=== PATIENT | male | born 1945 | race African-American/Black ===

== ENCOUNTER 2016-12-22 09:30 | Observation (INO) | payer MEDICARE ==
[2016-12-22 09:58] LABS: #Eosinphils 0.2 thou/uL (0.0-0.7); #Lymphocytes 2.3 thou/uL (1.20-3.40); #Monocytes 0.6 thou/uL (0.11-0.59); #Neutrophils 1.7 thou/uL (1.40-6.50); %Basophils 0.6 % (0.0-1.0); %Eosinophils 4.3 % (0.0-10.0); %Lymphocytes 47.6 % (21.0-51.0); %Monocytes 11.8 % (0.0-10.0); Hematocrit 47.4 % (42.0-52.0); Mean Platelet Volume 8.1 fL (7.4-10.4); Red Blood Cell (RBC) Count 5.27 mill/uL (4.70-6.10); White Blood Cell (WBC) Count 4.8 thou/uL (4.8-10.8)
[2016-12-22 10:17] LABS: ALT (SGPT) 19 U/L (8-55); AST (SGOT) 26 U/L (5-34); Alkaline Phosphatase 130 U/L (40-150); Anion Gap 17 mmol/L (10-20); BUN (Urea Nitrogen) 24 mg/dL (8.4-25.7); Bilirubin, Total 0.7 mg/dL (0.2-1.2); CK (CPK) 157 U/L (30-200); Calc. Creatinine Clearance 0 mL/min (70-130); Carbon Dioxide 24 mmol/L (23-31); Chloride 104 mmol/L (98-107); Estimated GFR-MDRD 61; Globulin 4.3 g/dL (2.4-3.5); Lipase 23 U/L (8-78); Protein, Total 8.4 g/dL (5.8-8.1)
[2016-12-22 10:20] LABS: Troponin I Less than 0.010 ng/mL (< 0.028)
--- NOTE | 2016-12-22 10:44 | RAD ---
PORTABLE CHEST 1 VIEW: DATE: 12/22/16. TIME: 10:18 a.m. HISTORY: Chest pain. FINDINGS: Comparison is made with the exam of 02/20/15. The heart size is normal. The lungs are expanded without focal areas of consolidation, pneumothorac es, or pleural effusions. Metallic densities in the upper lateral chest are again seen. IMPRESSION: No radiographic evidence of acute cardiopulmonary process. POS: OFF
[2016-12-22] MEDS ORDERED: Diabetic Tussin 200 MG/10 ML UDCUP PO PRN (11:23)
[2016-12-22] MEDS ORDERED: Mag-Al 1200 mg/1200 mg/30 ML UDCUP PO PRN (11:23)
[2016-12-22] MEDS ORDERED: Acetaminophen 325 MG TAB PO PRN (11:23)
[2016-12-22] MEDS ORDERED: traMADol HCl 50 MG TAB PO PRN (11:23)
[2016-12-22] MEDS ORDERED: Bisacodyl 5 MG TAB PO PRN (11:23)
[2016-12-22] MEDS ORDERED: Ondansetron HCl/PF 4 MG/2 ML Vial IVP PRN (11:23)
[2016-12-22] MEDS ORDERED: Lorazepam 1 MG TAB PO PRN (11:23)
[2016-12-22] MEDS ORDERED: Calcium Carbonate 500 MG ChewTAB PO PRN (11:23)
[2016-12-22] MEDS ORDERED: Nitroglycerin 0.4 MG TAB (25 Tab Bottle) SL PRN (11:23)
[2016-12-22] MEDS ORDERED: Senokot 8.6 MG TAB PO PRN (11:23)
[2016-12-22] MEDS ORDERED: cloNIDine 0.1 MG TAB PO PRN (11:23)
[2016-12-22] MEDS ORDERED: hydrALAZINE 20 MG/ML VIAL SLOW IVP PRN (11:23)
[2016-12-22] MEDS ORDERED: Loratadine 10 MG TAB PO PRN (11:23)
[2016-12-22] MEDS ORDERED: HYDROcodone/Acetaminophen 5/325 mg Tablet PO PRN (11:23)
[2016-12-22] MEDS ORDERED: Benzonatate 100 MG CAP PO PRN (11:23)
[2016-12-22 12:24] VITALS: BMI 29.4
[2016-12-22] MEDS ORDERED: FLU VACC TS2017-18 (>65YR) 0.5 ML SYRINGE IM ONE (13:15)
--- NOTE | 2016-12-22 13:50 | HP ---
DATE OF ADMISSION: 12/22/2016 PRIMARY CARE PHYSICIAN: Dr. Maty Liu at [facility]. CHIEF COMPLAINT: Chest pain and testicular pain. HISTORY OF PRESENT ILLNESS: Mr. Gregory is a pleasant 71-year-old Afro- [place] male with past medical history of hypertension and dyslipidemia, who presented to the emergency room with above-mentioned complaint. History is mainly obtained by the patient himself and electronic medical records have been reviewed. The case has been discussed with the emergency physician, Dr. Avelar. Mr. Gregory reports that he has been having intermittent chest pain for the last 2-3 weeks. This is associated with testicular pain and pain in the back of his thighs. He says that all of this pain is just one pain, and every time he has testicular pain, feeling of chest pain comes on. He cannot really describe it other than a heavy sensation, but it seems like he is more bothered about the testicular pain rather than the chest pain. He denies any scrotal swelling or recent trauma. His symptoms are largely exacerbated by intercourse. Currently, his pain is tolerable and is getting better without any intervention. With regard to his cardiac symptoms, he reports that lately he has noticed that he gets easily winded and tired. He has to stop to catch his breath while hunting with his friends on a nightly basis. He has been having some congestion and phlegm for the last few days. He smokes occasionally once every few days. He denies any recent falls, trauma, accident, or recent travels. He denies any orthopnea or PND. He denies any fever, chills, or other recent illnesses. Upon presentation to the emergency room, he was hemodynamically stable with a blood pressure of 131/104 with a pulse of 81, saturation is 93% on room air. His initial workup included a normal 12-lead EKG and normal cardiac enzymes. Given his history of hypertension, dyslipidemia, advanced age as well as his smoking history, his cardiac score is greater than 3 and he is being admitted for further evaluation and rule out acute coronary syndrome. The patient reports that he has stopped taking his cholesterol medications. In the emergency room, he has received 324 mg of oral aspirin and a chest x-ray was also done, which is unremarkable. PAST MEDICAL HISTORY: 1. Hypertension. 2. Dyslipidemia. 3. Tobacco dependence. PAST SURGICAL HISTORY: Unknown abdominal surgery. FAMILY HOSTORY: No CAD.stroke SOCIAL HISTORY: He smokes few cigarettes every few days and occasionally drinks alcohol. He lives at home with his family. No history of drug abuse. ALLERGIES: No known medication allergies. CURRENT MEDICATIONS: Unknown. The patient could not tell me what he takes at home for his high blood pressure. REVIEW OF SYSTEMS: The following complete review of systems was negative, unless otherwise mentioned in the HPI or below: Constitutional: Weight loss or gain, ability to conduct usual activities. Skin: Rash, itching. Eyes: Double vision, pain. ENT/Mouth: Nose bleeding, neck stiffness, pain, tenderness. Cardiovascular: Palpitations, dyspnea on exertion, orthopnea. Respiratory: Shortness of breath, wheezing, cough, hemoptysis, fever or night sweats. Gastrointestinal: Poor appetite, abdominal pain, heartburn, nausea, vomiting, constipation, or diarrhea. Genitourinary: Urgency, frequency, dysuria, nocturia. Musculoskeletal: Pain, swelling. Neurologic/Psychiatric: Anxiety, depression. Allergy/Immunologic: Skin rash, bleeding tendency. It is negative except for those mentioned in the history and physical. Chest x-ray, by my review, has no evidence to suggest pulmonary edema, effusion , or infiltrate. A 12-lead EKG shows normal sinus rhythm without any acute ST or T-wave changes. Heart rate 84 beats per minute. PHYSICAL EXAMINATION: VITAL SIGNS: Most recent include temperature 97.3, pulse of 64, respirations 16 , saturating 96% on room air, blood pressure 166/96. GENERAL EXAMINATION: In no acute distress, awake, alert, oriented x3. HEENT EXAMINATION: Mucous membrane is moist and pink. No oropharyngeal exudate or erythema. Head is normocephalic, atraumatic. Pupils are equal and reactive to light and accommodation. Extraocular movements intact. NECK: Supple without any lymphadenopathy, JVD, or bruit. CHEST: Clear to auscultation without any wheezing, rales, or rhonchi. Rate and rhythm is regular without any murmur, rubs, or gallops. ABDOMEN: Soft, nontender, nondistended with positive bowel sounds. No guarding , rebound, or rigidity. GENITOURINARY EXAM: External genitalia appear normal. There is no testicular swelling, erythema, or tenderness. Cremasteric reflex normal. EXTREMITIES: Free of any cyanosis, clubbing, or edema. NEUROLOGICAL EXAMINATION: Nonfocal. SKIN: Free of any rashes or bruises, feels warm and dry to touch. PSYCHIATRIC: Normal affect. LABORATORY DATA: His CBC is unremarkable. His serum chemistry shows creatinine of 1.40. Troponin less than 0.010 with CK-MB of 3.1. Creatinine kinase 157, lipase of 23. IMPRESSION AND PLAN: 1. Chest pain. The patient is being admitted to our telemetry unit under observation status to rule out acute coronary syndrome. He is rather hypertensive at this time. We will restart his home medications once confirmed , and until then, we will use p.r.n. antihypertensives. He has multiple risk factors for cardiac disease. We will check a lipid panel and also obtain a nuclear medicine cardiac stress test for further evaluation. His first set of cardiac enzymes are normal and we will continue to trend serial cardiac enzymes. 2. Hypertension. The patient will be restarted on his home medications as soon as it is confirmed. He will benefit from addition of beta-saida or BALDOMERO inhibitor with diuretics for his hypertension. At this time, we will avoid beta saida, as he is supposed to be undergoing stress test soon. Restart home medications and add p.r.n. antihypertensives. 3. Dyslipidemia. We will restart the patient on atorvastatin low dose at this time. Recheck his lipid panel. 4. Testicular pain. The patient is currently having spontaneous improvement in his symptoms. I will refer him to outpatient Urology for further recommendations. Nothing acute on examination for today. DISPOSITION: The patient is being admitted to telemetry unit under observation status for ACS workup. Further management will depend upon his clinical course. DONNA
[2016-12-22 13:58] LABS: Troponin I Less than 0.010 ng/mL (< 0.028)
[2016-12-22 16:58] LABS: Troponin I Less than 0.010 ng/mL (< 0.028)
[2016-12-22] MEDS: Carvedilol 3.125 MG TAB PO SCH (20:01)
[2016-12-22] MEDS ORDERED: Atorvastatin Calcium 20 MG TAB PO SCH (21:00)
[2016-12-22] MEDS ORDERED: Lisinopril 20 MG TAB PO SCH (21:00)
[2016-12-23 06:05] LABS: #Eosinphils 0.2 thou/uL (0.0-0.7); #Lymphocytes 1.9 thou/uL (1.20-3.40); #Monocytes 0.7 thou/uL (0.11-0.59); #Neutrophils 2.8 thou/uL (1.40-6.50); %Basophils 0.2 % (0.0-1.0); %Eosinophils 3.8 % (0.0-10.0); %Lymphocytes 33.8 % (21.0-51.0); %Monocytes 11.9 % (0.0-10.0); Mean Platelet Volume 8.2 fL (7.4-10.4); Red Blood Cell (RBC) Count 5.08 mill/uL (4.70-6.10); White Blood Cell (WBC) Count 5.6 thou/uL (4.8-10.8)
[2016-12-23 06:18] LABS: Anion Gap 12 mmol/L (10-20); BUN (Urea Nitrogen) 19 mg/dL (8.4-25.7); Calc. Creatinine Clearance 70 mL/min (70-130); Calcium 9.3 mg/dL (7.8-10.44); Carbon Dioxide 29 mmol/L (23-31); Chloride 101 mmol/L (98-107); Estimated GFR-MDRD 67
[2016-12-23 08:05] VITALS: TEMP 98.3
[2016-12-23] MEDS ORDERED: Enoxaparin Sodium 40 MG/0.4 ML SYRINGE SC SCH (09:00)
[2016-12-23] MEDS ORDERED: Lisinopril 20 MG TAB PO SCH (09:00)
[2016-12-23] MEDS ORDERED: Aspirin 325 MG TAB PO SCH (09:00)
[2016-12-23] MEDS ORDERED: Finasteride 5 MG TAB PO SCH (09:00)
[2016-12-23] MEDS ORDERED: Lisinopril 10 MG TAB PO SCH (09:00)
[2016-12-23] MEDS: Carvedilol 3.125 MG TAB PO SCH (10:31)
[2016-12-23 10:59] VITALS: BP 136/96
[2016-12-23] MEDS ORDERED: ADENOSINE 60 MG/20 ML VIAL ONE (12:00)
--- NOTE | 2016-12-23 13:45 | NM ---
NUCLEAR MEDICINE CARDIAC PERFUSION EXAMINATION WITH EJECTION FRACTION: HISTORY: 71-year-old male with chest pain, hypertension, and hyperlipidemia. TECHNIQUE: A two day nuclear medicine cardiac perfusion examination was performed. Rest images were obtained us ing 31.5 mCi of technetium-99m sestamibi. The following day, stress images were obtained using 32 mC i of technetium-99m sestamibi and Adenosine. FINDINGS: Tomographic images show no fixed or reversible perfusion defects. Gated images show normal wall itz on with an ejection fraction of 56%. EDV: 93 ml LHR: 0.3 TID: 1.2 IMPRESSION: No evidence of ischemia. POS: [facility]
[2016-12-23] MEDS ORDERED: Ipratropium Bromide 0.06% Nasal Inhaler 15ml NASAL SCH (15:00)
--- NOTE | 2016-12-23 15:35 | DIS ---
DATE OF ADMISSION: 12/22/2016 DATE OF DISCHARGE: 12/23/2016 CONDITION AT THE TIME OF DISCHARGE: Stable and improved. DISCHARGE DIAGNOSES: 1. Chest pain, acute coronary syndrome ruled out, noncardiac. 2. Hypertension. 3. Dyslipidemia. 4. Benign prostatic hypertrophy. 5. Gastroesophageal reflux disease. PRIMARY CARE PHYSICIAN: [facility]. The patient used to see Dr. Maty Liu, but she was transferred. The patient is instructed to call and make up appointment with the new primary care raymond eubanks in the same clinic. DISCHARGE DISPOSITION: Home. DISCHARGE MEDICATIONS: 1. Proscar 5 mg daily. 2. Aspirin 81 mg daily. 3. Iron 27 mg daily. 4. Mucinex D 2 tablets p.o. b.i.d. 5. Omeprazole 20 mg daily. 6. Lisinopril 20 mg daily. 7. Ipratropium sprays both nares 4 times a day. 8. Coreg 3.125 mg p.o. b.i.d. 9. Lipitor 20 mg at bedtime. PROCEDURES DONE IN THE HOSPITAL: Include; 1. Chest x-ray upon admission, which is unremarkable. 2. Nuclear medicine cardiac stress test, which showed preserved ejection fraction at 56% without an y evidence of ischemia. ADMISSION HISTORY: Mr. Gregory is a very pleasant 71-year-old male with past medical history of hy pertension and dyslipidemia, who was somewhat noncompliant with his medication, came to the hospital with complaints of chest pain, tightness and testicular pain. He was hemodynamically stable upon p resentation with normal cardiac enzymes and initial normal 12-lead EKG. He was admitted for ACS wor [facility]. Please see admission history and physical dictated by myself for further details. HOSPITAL COURSE: The patient remained asymptomatic throughout the rest of his hospitalization and h emodynamically stable. He did undergo nuclear medicine stress test, which was negative for ACS. He had complaints of chest congestion. He was started on ipratropium nasal spray and was given prescr iption for the same as well as decongestants. His cardiac enzymes were trended and remained negativ e. His BNP was normal. He did have elevated triglycerides and total cholesterol and he was restart ed on his statin and was given prescription for the same. Dietary advice was provided and he was in structed to add fish oil supplements to his diet on a daily basis. He was seen and examined on the day of discharge and is feeling well without any new complaints. He is eager to go home. PHYSICAL EXAMINATION: VITAL SIGNS: Temperature 98.3, pulse of 89, respirations 18, saturating 89% to 97% on room air and blood pressure 136/96. GENERAL: No acute distress. Awake, alert and oriented x3. CHEST: Clear to auscultation without any wheezing, rales or rhonchi. Rate and rhythm is regular wi thout any murmur, rubs or gallops. EXTREMITIES: Free of any cyanosis, clubbing or edema. LABORATORY DATA: Cardiac enzymes, troponin less than 0.010 x3, BNP 20, total cholesterol 212 with L DL of 129, triglycerides 245 and lipase 25. Serum chemistries are unremarkable. CBC within normal limits. DISCHARGE INSTRUCTIONS: At this time, he is instructed to follow up with his primary care physician and all the new medication prescriptions as well as refills on the old medications were provided. The patient had elevated blood pressure upon presentation to 156/96, which improved after restarting his antihypertensives.
== END 2016-12-23 14:39 | disposition home or self-care (01) ==
LOC: ERS 09:30 → 2SW 11:15 → INTOOBSV 11:15
PROVIDERS: ADMIT Internal Medicine; ATTEND Internal Medicine
DX: R07.89 Other chest pain (principal); I10 Essential (primary) hypertension; E78.5 Hyperlipidemia, unspecified; N40.0 Benign prostatic hyperplasia without lower urinary tract symptoms; K21.9 Gastro-esophageal reflux disease without esophagitis; N50.819 Testicular pain, unspecified; F17.210 Nicotine dependence, cigarettes, uncomplicated; Z91.19 Patient's noncompliance with other medical treatment and regimen; Z79.82 Long term (current) use of aspirin; Z79.899 Other long term (current) drug therapy
CPT/HCPCS: 71010; 78452; 80048; 80053; 80061; 82550; 82553; 83690; 83880; 84484 ×2; 85025 ×2; 90732; 93005; 93017; 94760 ×2; 96372; 97139; 99285; 99406; A9500; G0008; G0009; G0378; Q2036; 36415; 90471; 90682; J0153; J1650

== ENCOUNTER 2017-06-14 07:48 | Emergency (ER) | payer MEDICARE ==
[2017-06-14] MEDS ORDERED: Dexamethasone 10 MG/ML VIAL ONE (08:26)
== END 2017-06-14 08:49 | disposition home or self-care (01) ==
LOC: ERS 07:48
DX: M10.9 Gout, unspecified (principal); E78.5 Hyperlipidemia, unspecified; I10 Essential (primary) hypertension; F17.210 Nicotine dependence, cigarettes, uncomplicated; Z79.82 Long term (current) use of aspirin; Z79.899 Other long term (current) drug therapy
CPT/HCPCS: 96372; J1100